=== PATIENT | female | born 1960 | race Caucasian/White ===

== ENCOUNTER 2019-12-22 15:57 | Emergency (ER) | payer MEDICARE ==
[2019-12-22 16:30] VITALS: BP 111/53
[2019-12-22 16:56] VITALS: PULSE 16
[2019-12-22] MEDS ORDERED: Sodium Chloride 0.9% 10 ML Syringe FLUSH PRN (17:31)
[2019-12-22] MEDS ORDERED: HYDROmorphone 0.5 MG/0.5 ML Syringe IVPUSH ONE (17:31)
[2019-12-22] MEDS ORDERED: Ketorolac 30 MG/ML SDV IVPUSH ONE (17:31)
--- NOTE | 2019-12-22 18:00 | EDM.PDOC ---
ED HPI GENERAL MEDICAL PROBLEM - General Chief Complaint: Lower Extremity Injury/Pain Stated Complaint: L HIP AND SHOULDER PAIN UP THRU BACK Time Seen by Provider: 12/22/19 17:30 Source of Information: Reports: Patient, Family History Limitations: Reports: No Limitations - History of Present Illness INITIAL COMMENTS - FREE TEXT/NARRATIVE: 59-year-old female was in a local store when she developed a sharp pain in her left back radiating down her left buttock and leg and up into her left shoulder. It is painful to move and take a deep breath. She has had similar pains but on the right side. This is been a recurring problem for the past couple months, she has also had more cramping at night especially in her legs and feet. No fevers or chills, no nausea or vomiting. Onset: Sudden (Pain suddenly worsened on the right side) Associated Symptoms: Denies: Confusion, Chest Pain, Cough, Fever/Chills, Headaches, Loss of Appetite, Malaise, Nausea/Vomiting, Shortness of Breath, Weakness Left Leg Pain Score (Numeric/FACES): 7 - Related Data Allergies Allergy/AdvReac Type Severity Reaction Status Date / Time amoxicillin [Amoxicillin] Allergy Unknown Hives Verified 12/22/19 16:57 aspartame Allergy Unknown Anaphylactic Verified 12/22/19 16:57 Shock citalopram hydrobromide Allergy Unknown Cannot Verified 12/22/19 16:57 [From Celexa] Remember codeine Allergy Unknown Headache Verified 12/22/19 16:57 Penicillins Allergy Unknown Hives Verified 12/22/19 16:57 Home Meds: Home Meds ZOLMitriptan [Zomig] 2.5 mg PO ASDIRECTED PRN 05/21/14 [History] Calcium Carbonate [Tums] 500 mg PO DAILY 08/05/15 [History] Cyanocobalamin (Vitamin B-12) [Vitamin B-12] 1,000 mcg SL DAILY 08/05/15 [ History] Vitamin B Complex [B Complex] 1 each PO DAILY 08/05/15 [History] Lactobacillus Combo No.10 [Probiotic] 1 each PO DAILY 12/22/19 [History] Propranolol [Inderal] 40 mg PO DAILY 12/22/19 [History] Past Medical History Gastrointestinal History: Reports: None Musculoskeletal History: Reports: None - Past Surgical History Head Surgeries/Procedures: Reports: None GI Surgical History: Reports: Bariatric Procedure, Other (See Below) Other GI Surgeries/Procedures: 2013 rny Musculoskeletal Surgical History: Reports: Knee Replacement, Other (See Below) Other Musculoskeletal Surgeries/Procedures:: Carpel tunnel x 2 Social & Family History - Tobacco Use Smoking Status *Q: Current Every Day Smoker Years of Tobacco use: 12 Packs/Tins Daily: 0.5 - Caffeine Use Caffeine Use: Reports: Coffee, Tea - Recreational Drug Use Recreational Drug Use: No Review of Systems - Review of Systems Review Of Systems: See Below Constitutional: Denies: Fever Respiratory: Denies: Shortness of Breath Cardiovascular: Denies: Chest Pain GI/Abdominal: Reports: Abdominal Pain (Some pain radiating to the left abdomen into the hip) Musculoskeletal: Reports: Shoulder Pain, Arm Pain (All left-sided), Back Pain, Leg Pain Skin: Reports: No Symptoms Neurological: Reports: Paresthesia (Numb feeling radiating down the left leg). Denies: Headache ED EXAM, GENERAL - Physical Exam Exam: See Below Exam Limited By: No Limitations General Appearance: Alert, No Apparent Distress, Other (Fairly comfortable while lying still, increased pain with rotation or movement of the trunk or lower extremities) Head: Atraumatic Neck: Normal Inspection, Supple Respiratory/Chest: No Respiratory Distress, Lungs Clear Cardiovascular: Regular Rate, Rhythm GI/Abdominal: Soft, Non-Tender Back Exam: Paraspinal Tenderness (Very tender to palpation along the lumbar and lower thoracic paraspinous muscles especially on the left side) Extremities: Other (Some increased back pain with extension of the left leg and flexion of the hip, no increased pain with rotation of the hip) Neurological: Alert, Oriented, No Motor/Sensory Deficits Psychiatric: Anxious Skin Exam: Warm, Dry Course - Vital Signs Last Recorded V/S: Last Vital Signs Temp 96.9 F 12/22/19 16:29 Pulse 16 L 12/22/19 16:56 Resp 16 12/22/19 16:56 BP 111/53 L 12/22/19 16:56 Pulse Ox 98 12/22/19 16:56 - Orders/Labs/Meds Labs: Laboratory Tests 12/22/19 12/22/19 Range/Units 17:47 17:47 WBC 4.2 L (4.5-11.0) K/uL RBC 4.45 (3.30-5.50) M/uL Hgb 11.4 L (12.0-15.0) g/dL Hct 37.3 (36.0-48.0) % MCV 84 (80-98) fL MCH 26 L (27-31) pg MCHC 31 L (32-36) % Plt Count 347 (150-400) K/uL Neut % (Auto) 35 L (36-66) % Lymph % (Auto) 52 H (24-44) % [place] % (Auto) 7 H (2-6) % Eos % (Auto) 5 H (2-4) % Baso % (Auto) 1 (0-1) % Sodium 142 (140-148) mmol/L Potassium 3.8 (3.6-5.2) mmol/L Chloride 104 (100-108) mmol/L Carbon Dioxide 26 (21-32) mmol/L Anion Gap 11.6 (5.0-14.0) mmol/L BUN 11 (7-18) mg/dL Creatinine 1.0 (0.6-1.0) mg/dL Est Cr Clr Drug Dosing 55.85 mL/min Estimated GFR (MDRD) 57 L (>60) Glucose 88 (74-106) mg/dL Calcium 9.1 (8.5-10.1) mg/dL Meds: Medications Discontinued Medications Generic Name Dose Route Start Last Admin Trade Name Freq PRN Reason Stop Dose Admin Hydromorphone HCl 0.5 mg 12/22/19 17:31 12/22/19 17:49 Dilaudid IVPUSH 12/22/19 17:32 0.5 mg ONETIME ONE Administration Ketorolac Tromethamine 30 mg 12/22/19 17:31 12/22/19 17:49 Toradol IVPUSH 12/22/19 17:32 30 mg ONETIME ONE Administration Sodium Chloride 10 ml 12/22/19 17:31 12/22/19 17:49 Saline Flush FLUSH 10 ml ASDIRECTED PRN Administration Keep Vein Open - Re-Assessments/Exams Free Text/Narrative Re-Assessment/Exam: 12/22/19 17:59 CBC and BMP were obtained, an IV was started and the patient was given 30 mg of Toradol and 0.5 mg of IV Dilaudid. Explained to her that this appears to be musculoskeletal in nature and should respond to the medications as reassurance was needed. She was very anxious. 12/22/19 18:32 Symptoms improved fairly significantly after the medications, she felt best when she laid on her right side. She will continue her current medications and I discharge her with ten 1 mg Ativan to use as needed for anxiety and muscle spasms. She is to stay hydrated and recheck next week if not improving satisfactorily, can always return sooner if worsening or concerns. Departure - Departure Time of Disposition: 18:53 Disposition: Home, Self-Care 01 Condition: Good Clinical Impression: Back spasm, Muscle cramps, Anxiety about health - Discharge Information Instructions: Muscle Cramps and Spasms, [id number] Referrals: PCP,None [Primary Care Provider] - Forms: ED Department Discharge Care Plan Goals: Stay hydrated and active, continue your current medications and use Ativan up to every 4-6 hours for muscle spasm and tightness. Recheck next week if not improving satisfactorily, return anytime if worsening or concerns, especially difficulty breathing or chest pain. Sepsis Event Note - Evaluation Sepsis Screening Result: No Definite Risk - Focused Exam Date Exam was Performed: 12/28/19 Time Exam was Performed: 17:25
== END 2019-12-22 18:54 | disposition home or self-care (01) ==
LOC: JP.ED 15:57
DX: M62.838 Other muscle spasm (principal); F41.9 Anxiety disorder, unspecified; F17.210 Nicotine dependence, cigarettes, uncomplicated; Z88.1 Allergy status to other antibiotic agents; Z88.5 Allergy status to narcotic agent; Z88.0 Allergy status to penicillin
CPT/HCPCS: 36415; 80048; 85025; 96374; 96375; 99283; J1170; J1885; 99284

== ENCOUNTER 2021-08-17 23:23 | Emergency (ER) | payer MEDICARE ==
--- NOTE | 2021-08-17 23:48 | EDM.PDOC ---
ED HPI GENERAL MEDICAL PROBLEM - General Chief Complaint: Drug or Alcohol Abuse Stated Complaint: ANXIETY Time Seen by Provider: 08/17/21 23:30 Source of Information: Reports: EMS History Limitations: Reports: Altered Mental Status - History of Present Illness INITIAL COMMENTS - FREE TEXT/NARRATIVE: 61-year-old female with a history of anxiety, ate some type of a brownie or life skills coordinator igor laced with marijuana and had a bad reaction to it tonight causing her to be panicky, anxious and tremulous. They could not calm her down so they called the ambulance, the ambulance gave her 5 mg of IM Versed in route and she is now sedated and stable. I cannot get a history from her at this time. 1/2-hour after arrival she became more aware and communicative, she admits that she not only took 2 marijuana cookies but also some tramadol. She has been struggling with a persistent rash in her scalp and anxiety about her health. She has an appointment with her primary doctor tomorrow. Onset: Unknown/Unsure Duration: Chronic Location: Reports: Other (Rashes mostly on her scalp, arms and lower back) Associated Symptoms: Reports: Confusion, Malaise. Denies: Chest Pain, Cough, Fever/Chills, Nausea/Vomiting, Shortness of Breath - Related Data Allergies Allergy/AdvReac Type Severity Reaction Status Date / Time amoxicillin [Amoxicillin] Allergy Unknown Hives Verified 08/17/21 23:26 aspartame Allergy Unknown Anaphylactic Verified 08/17/21 23:26 Shock citalopram hydrobromide Allergy Unknown Cannot Verified 08/17/21 23:26 [From Celexa] Remember codeine Allergy Unknown Headache Verified 08/17/21 23:26 Penicillins Allergy Unknown Hives Verified 08/17/21 23:26 Home Meds: Home Meds Cyanocobalamin (Vitamin B-12) [Vitamin B-12] 1,000 mcg SL DAILY 08/05/15 [History] Vitamin B Complex [B Complex] 1 each PO DAILY 08/05/15 [History] Propranolol [Inderal] 40 mg PO DAILY 12/22/19 [History] Acetaminophen/Diphenhydramine [Tylenol Pm Ex-Strength Caplet] 1 tab PO BEDTIME PRN 08/17/21 [History] Albuterol [Ventolin HFA] 1 - 2 puff IN Q4H PRN 08/17/21 [History] Cyclobenzaprine [Flexeril] 1 tab PO TID PRN 08/17/21 [History] Lysine 1 tab PO DAILY 08/17/21 [History] Rizatriptan [Maxalt ANALOG IC DESIGN ARCHITECT] 1 tab PO ASDIRECTED PRN 08/17/21 [History] traZODone 1 tab PO BEDTIME PRN 08/17/21 [History] Past Medical History Respiratory History: Reports: Asthma Gastrointestinal History: Reports: None Genitourinary History: Reports: None Musculoskeletal History: Reports: None Neurological History: Reports: Migraines Hematologic History: Reports: B12 Deficiency - Past Surgical History Head Surgeries/Procedures: Reports: None GI Surgical History: Reports: Bariatric Procedure, Other (See Below) Other GI Surgeries/Procedures: 2012 rny Female Surgical History: Reports: Hysterectomy Musculoskeletal Surgical History: Reports: Knee Replacement, Other (See Below) Other Musculoskeletal Surgeries/Procedures:: Carpel tunnel x 2 Social & Family History - Family History Family Medical History: No Pertinent Family History - Tobacco Use Tobacco Use Status *Q: Unknown Ever Used Tobacco - Caffeine Use Caffeine Use: Reports: None - Recreational Drug Use Recreational Drug Use: Yes Recreational Drug Type: Reports: Marijuana/Hashish ED ROS GENERAL - Review of Systems Review Of Systems: See Below Reason Not Obtained: Review of systems was obtainable when mentation improved Constitutional: Reports: Malaise. Denies: Fever, Chills HEENT: Denies: Vision Change Respiratory: Denies: Shortness of Breath GI/Abdominal: Denies: Abdominal Pain, Nausea, Vomiting Skin: Reports: Rash (Especially on her scalp, mid lower back and arms) Psychiatric: Reports: Anxiety - Physical Exam Exam: See Below Text/Narrative:: When the patient initially arrived, she was moderately lethargic but answers questions and open her eyes to voice. Markedly slurred speech initially. This improved over the course of 30 to 60 minutes. Exam Limited By: Physical Impairment General Appearance: Lethargic Eye Exam: Bilateral Eye: PERRL Head Exam: Atraumatic, Other (She does have a confluent erythematous macular rash of the scalp) Neck: Supple, Non-Tender Respiratory/Chest: Lungs Clear Cardiovascular: Regular Rate, Rhythm. No: Tachycardia GI/Abdominal: Soft, Non-Tender Neuro Exam (Abbreviated): Confused, Slow to Respond Extremities: Other (A few excoriations on the lateral elbows from scratching) Psychiatric: Depressed Mood, Flat Affect Skin Exam: Rash (Erythematous rash is present in the scalp, there is also some superficial excoriations in the low mid back and on her arms bilaterally) Course - Vital Signs Last Recorded V/S: Last Vital Signs Temp 98.3 F 08/17/21 23:33 Pulse 65 08/18/21 00:09 Resp 16 08/18/21 00:09 BP 103/52 L 08/18/21 00:09 Pulse Ox 99 08/18/21 00:09 - Orders/Labs/Meds Labs: Laboratory Tests 08/18/21 08/18/21 Range/Units 00:41 00:41 WBC 5.3 (4.5-11.0) K/uL RBC 4.56 (3.30-5.50) M/uL Hgb 14.2 D (12.0-15.0) g/dL Hct 41.9 (36.0-48.0) % MCV 92 (80-98) fL MCH 31 (27-31) pg MCHC 34 (32-36) % Plt Count 233 (150-400) K/uL Neut % (Auto) 57.1 (36-66) % Lymph % (Auto) 27.7 (24-44) % [place] % (Auto) 8.0 H (2-6) % Eos % (Auto) 6.4 H (2-4) % Baso % (Auto) 0.8 (0-1) % Sodium 138 L (140-148) mmol/L Potassium 4.8 (3.6-5.2) mmol/L Chloride 103 (100-108) mmol/L Carbon Dioxide 27 (21-32) mmol/L Anion Gap 12.8 (5.0-14.0) mmol/L BUN 15 (7-18) mg/dL Creatinine 1.0 (0.6-1.0) mg/dL Est Cr Clr Drug Dosing 56.71 mL/min Estimated GFR (MDRD) 57 L (>60) Glucose 101 (74-106) mg/dL Calcium 8.8 (8.5-10.1) mg/dL Total Bilirubin 0.2 (0.2-1.0) mg/dL AST 23 (15-37) U/L ALT 28 (12-78) U/L Alkaline Phosphatase 66 (46-116) U/L Total Protein 7.1 (6.4-8.2) g/dL Albumin 3.6 (3.4-5.0) g/dL Globulin 3.5 (2.3-3.5) g/dL Albumin/Globulin Ratio 1.0 L (1.2-2.2) - Re-Assessments/Exams Free Text/Narrative Re-Assessment/Exam: 08/18/21 00:37 Patient continued to improve as the medication side effects wore off. CBC and CMP were obtained. 08/18/21 01:34 All the patient's labs were normal, she continued to improve but had some persistent dysarthria and tremor with activity. She was able to get to the bathroom with assistance. She needs to follow-up with her primary provider to discuss further evaluation of her chronic rash and somatic symptoms. Departure - Departure Time of Disposition: 01:59 Disposition: Home, Self-Care 01 Clinical Impression: Rash Adverse effect of cannabis Qualifiers: Encounter type: initial encounter Qualified Code(s): T40.715A - Adverse effect of cannabis, initial encounter - Discharge Information Instructions: Rash, Adult Referrals: PCP,None [Primary Care Provider] - Forms: ED Department Discharge Care Plan Goals: Take only medicines that are prescribed to you, and recheck tomorrow as planned to discuss your symptoms of rash and tremor with your primary provider. Sepsis Event Note (ED) - Evaluation Sepsis Screening Result: No Definite Risk - Focused Exam Vital Signs: Vital Signs Temp Pulse Resp BP Pulse Ox 08/18/21 00:09 65 16 103/52 L 99 08/17/21 23:33 98.3 F 62 16 99/48 L 91 L
[2021-08-18 00:10] VITALS: BP 103/52; PULSE 65
== END 2021-08-18 01:59 | disposition home or self-care (01) ==
LOC: JP.ED 23:23
DX: R21 Rash and other nonspecific skin eruption (principal); T40.715A Adverse effect of cannabis, initial encounter; J45.909 Unspecified asthma, uncomplicated; Z88.0 Allergy status to penicillin; Z88.8 Allergy status to other drugs, medicaments and biological substances; Z88.1 Allergy status to other antibiotic agents; Z88.5 Allergy status to narcotic agent; Z79.899 Other long term (current) drug therapy
CPT/HCPCS: 36415; 80053; 85025; 99284

== ENCOUNTER 2021-08-19 16:13 | Emergency (ER) | payer MEDICARE ==
[2021-08-19 16:50] VITALS: BP 126/76; PULSE 75
[2021-08-19] MEDS: Ketorolac 30 MG/ML SDV IM ONE (18:08)
--- NOTE | 2021-08-19 19:05 | EDM.PDOC ---
ED HPI GENERAL MEDICAL PROBLEM - General Chief Complaint: General Stated Complaint: PAIN IN HEAD Time Seen by Provider: 08/19/21 18:25 Source of Information: Reports: Patient History Limitations: Reports: No Limitations - History of Present Illness INITIAL COMMENTS - FREE TEXT/NARRATIVE: 61-year-old female has been struggling with a left-sided headache for the past couple of days, since I saw her 2 nights ago when she had a very significant reaction to oral marijuana. She saw her primary provider yesterday for her persistent rash and was placed on hydroxyzine and prednisone, but when she got home and looked at herself in the mirror she felt like her left face was flushed and swollen. Today she has a left temporal headache that is persistent, she just feels awful. She called the clinic and they told her to come into the emergency room because she is "having a stroke". She drove herself and, walks without difficulty and shows no obvious neurologic deficits. Onset: Unknown/Unsure (This patient has had a number of symptoms that have waxed and waned for the past several weeks, the headache has been 2 days) Worsens with: Reports: Other (Activity causes increased discomfort) Associated Symptoms: Reports: Fever/Chills, Headaches, Loss of Appetite, Malaise, Weakness, Other (Persistent rash on her scalp and arms). Denies: Confusion - Related Data Allergies Allergy/AdvReac Type Severity Reaction Status Date / Time amoxicillin [Amoxicillin] Allergy Unknown Hives Verified 08/19/21 17:04 aspartame Allergy Unknown Anaphylactic Verified 08/19/21 17:04 Shock citalopram hydrobromide Allergy Unknown Cannot Verified 08/19/21 17:04 [From Celexa] Remember codeine Allergy Unknown Headache Verified 08/19/21 17:04 Penicillins Allergy Unknown Hives Verified 08/19/21 17:04 Home Meds: Home Meds Cyanocobalamin (Vitamin B-12) [Vitamin B-12] 1,000 mcg SL DAILY 08/05/15 [History] Vitamin B Complex [B Complex] 1 each PO DAILY 08/05/15 [History] Propranolol [Inderal] 40 mg PO DAILY 12/22/19 [History] Acetaminophen/Diphenhydramine [Tylenol Pm Ex-Strength Caplet] 1 tab PO BEDTIME PRN 08/17/21 [History] Albuterol [Ventolin HFA] 1 - 2 puff IN Q4H PRN 08/17/21 [History] Cyclobenzaprine [Flexeril] 1 tab PO TID PRN 08/17/21 [History] Lysine 1 tab PO DAILY 08/17/21 [History] Rizatriptan [Maxalt BUSINESS AREA MANAGER] 1 tab PO ASDIRECTED PRN 08/17/21 [History] traZODone 1 tab PO BEDTIME PRN 08/17/21 [History] Past Medical History HEENT History: Reports: Impaired Vision Cardiovascular History: Reports: High Cholesterol Respiratory History: Reports: Asthma Gastrointestinal History: Reports: None Genitourinary History: Reports: None 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: , 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 Musculoskeletal History: Reports: None, Arthritis, Back Pain, Chronic, Fibromyalgia, Gout Neurological History: Reports: Migraines, Seizure Psychiatric History: Reports: Anxiety Hematologic History: Reports: B12 Deficiency - Infectious Disease History Infectious Disease History: Reports: Chicken Pox, Measles, Scarlet Fever - Past Surgical History Head Surgeries/Procedures: Reports: None HEENT Surgical History: Reports: None Cardiovascular Surgical History: Reports: None Respiratory Surgical History: Reports: None GI Surgical History: Reports: Appendectomy, Bariatric Procedure, Cholecystectomy, Other (See Below) Other GI Surgeries/Procedures: 2013 rny Female Surgical History: Reports: Hysterectomy Neurological Surgical History: Reports: None Musculoskeletal Surgical History: Reports: Knee Replacement, Other (See Below) Other Musculoskeletal Surgeries/Procedures:: Carpel tunnel x 2 Dermatological Surgical History: Reports: None Social & Family History - Family History Family Medical History: No Pertinent Family History - Tobacco Use Tobacco Use Status *Q: Former Tobacco User Used Tobacco, but Quit: Yes Month/Year Tobacco Last Used: 03/2021 Second Hand Smoke Exposure: No - Caffeine Use Caffeine Use: Reports: Coffee - Recreational Drug Use Recreational Drug Use: No ED ROS GENERAL - Review of Systems Review Of Systems: See Below Constitutional: Reports: Chills, Malaise. Denies: Fever HEENT: Denies: Vision Change Respiratory: Denies: Shortness of Breath Cardiovascular: Reports: Other (Patient had 2 sharp episodes of pain earlier today in the left chest that only lasted seconds) GI/Abdominal: Reports: Abdominal Pain (One episode of sharp left lower abdominal pain tonight that is gone) : Reports: No Symptoms Skin: Reports: Rash Neurological: Reports: Headache, Tremors, Weakness ED EXAM, GENERAL - Physical Exam Exam: See Below Exam Limited By: No Limitations General Appearance: Alert, Anxious, Other (Persistent anxious tremor) Eye Exam: Bilateral Eye: EOMI, PERRL Ears: Normal TMs Head: Other (Some tenderness to palpation along the left temporalis muscle and left zygomatic area, no visual abnormality) Neck: Supple, Non-Tender Respiratory/Chest: No Respiratory Distress Cardiovascular: Regular Rate, Rhythm Neurological: Alert, Oriented, No Motor/Sensory Deficits, Other (Diffuse resting tremor) Psychiatric: Anxious, Depressed Mood, Flat Affect Skin Exam: Warm, Dry, Other (She does have erythema of the scalp diffusely and some excoriated lesions on her arms and lower back. Unchanged from 2 nights ago) Course - Vital Signs Last Recorded V/S: Last Vital Signs Temp 97.6 F 08/19/21 17:05 Pulse 75 08/19/21 17:05 Resp 16 08/19/21 17:05 BP 126/76 08/19/21 17:05 Pulse Ox 98 08/19/21 17:05 - Orders/Labs/Meds Meds: Medications Discontinued Medications Generic Name Dose Route Start Last Admin Trade Name Tayq PRN Reason Stop Dose Admin Ketorolac Tromethamine 30 mg 08/19/21 18:04 08/19/21 18:08 Ketorolac 30 Mg/Ml Sdv IM 08/19/21 18:05 30 mg ONETIME ONE Administration Lorazepam 1 mg 08/19/21 19:42 08/19/21 20:01 Lorazepam 1 Mg Tab PO 08/19/21 19:43 1 mg ONETIME ONE Administration - Re-Assessments/Exams Free Text/Narrative Re-Assessment/Exam: 08/19/21 19:05 Patient was given 30 mg of IM Toradol, followed by a CT of the head without contrast. Results are pending. 08/19/21 19:31 IMPRESSION: Unremarkable noncontrast head CT. No finding to explain headache or facial weakness. CT report was discussed with the patient. She will be given 1 mg of oral Ativan to take before bedtime the night to see if we can get her 1 good night sleep to settle some of this neuropathic symptoms that she is having. Departure - Departure Time of Disposition: 20:03 Disposition: Home, Self-Care 01 Clinical Impression: Tension headache, Rash - Discharge Information Instructions: Tension Headache, Adult Referrals: PCP,Unknown [Primary Care Provider] - Forms: ED Department Discharge Care Plan Goals: Take the Ativan 1 hour prior to planning on going to bed for the evening. Continue your other regular medications, and increase activity as tolerated tomorrow. I would recommend you try to finish her course of prednisone but if side effects are too uncomfortable contact your primary provider to discuss other alternatives. Sepsis Event Note (ED) - Focused Exam Vital Signs: Vital Signs Temp Pulse Resp BP Pulse Ox 08/19/21 17:05 97.6 F 75 16 126/76 98 08/19/21 16:49 97.6 F 75 16 126/76 98
--- NOTE | 2021-08-19 19:22 | CRLCT ---
For Patients: As a result of the Century Cures Act, medical imaging exams and procedure reports are released immediately into your electronic medical record. You may view this report before your referring provider. If you have questions, please contact your health care provider. INDICATION: Left-sided headache and facial weakness. TECHNIQUE: CT head without contrast. COMPARISON: None. FINDINGS: CSF spaces: Within normal limits for age. Brain parenchyma and extra-axial spaces: The robertson-white differentiation is normal. No sign of mass, hemorrhage, or midline shift. No extra-axial fluid collection. Skull base and calvarium: The visualized paranasal sinuses and mastoid air cells demonstrate no acute or significant findings. The visualized orbits are grossly unremarkable. No skull fractures. IMPRESSION: Unremarkable noncontrast head CT. No finding to explain headache or facial weakness. Please note that all CT scans at this facility use dose modulation, iterative reconstruction, and/or weight-based dosing when appropriate to reduce radiation dose to as low as reasonably achievable. Dictated by Jose Francisco Hamilton MD @ 08/19/2021 7:21:33 PM (Electronically Signed)
[2021-08-19] MEDS: LORazepam 1 MG Tab PO ONE (20:01)
== END 2021-08-19 20:04 | disposition home or self-care (01) ==
LOC: JP.ED 16:13
DX: G44.209 Tension-type headache, unspecified, not intractable (principal); J45.909 Unspecified asthma, uncomplicated; R21 Rash and other nonspecific skin eruption; Z88.0 Allergy status to penicillin; Z88.8 Allergy status to other drugs, medicaments and biological substances; Z88.5 Allergy status to narcotic agent; Z79.899 Other long term (current) drug therapy; Z87.891 Personal history of nicotine dependence
CPT/HCPCS: 70450; 96372; 99284; A9270; J1885